=== PATIENT | male | born 1975 | race Caucasian/White ===

== ENCOUNTER 2024-09-06 14:12 | Emergency (ER) | payer OTHER, SELFPAY ==
[2024-09-06] VITALS (26 sets, daily range): BP systolic 129–150; BP diastolic 63–88; PULSE 75–105; RESP 9–24; TEMP 36.7; O2SAT 90–98
[2024-09-06 15:26] LABS: Abs Immature Grans 0.05 10^3/uL (0.0-0.06); Absolute Basophil Count 0.12 10^3/uL (0.0-0.2); Absolute Eosinophil Count 0.36 10^3/uL (0.0-0.7); Absolute Monocyte Count 0.97 10^3/uL (0.1-0.8); Eosinophils % 2.9 %; HCT 41.4 % (40.0-50.0); HGB 14.3 g/dL (13.5-17.5); Immature Grans % 0.4 %; Lymphocytes % 20.1 %; MCH 33.7 pg (27.0-33.0); MCHC 34.5 % (32.0-36.0); MCV 98 fL (80-95); MPV 8.9 fL (8.0-11.0); Monocytes % 7.8 %; Neutrophils % 67.8 %; Platelet Count 391 10^3/uL (130-400); RBC 4.24 10^6/uL (4.36-5.78); RDW 13.3 % (11.8-14.1); RDW-SD 47.7 fL; WBC 12.45 10^3/uL (4.4-10.8)
[2024-09-06 15:27] LABS: Absolute Neutrophil Count 8.44 10^3/uL (1.2-6.7)
[2024-09-06] MEDS: chlordiazePOXIDE 25 MG CAP 100 MG PO (15:31)
--- NOTE | 2024-09-06 15:31 | ED.GENADUL_ITS ---
Discharge Plan Disposition Patient Disposition: Home Condition: Stable Discharge Details Clinical Impression: Alcohol withdrawal Primary Care Provider: Unknown,Unknown ED Provider: Aaron Rabago Home Meds and New Rx's Prescriptions: New thiamine HCl (vitamin B1) 100 mg capsule 100 mg PO DAILY Qty: 7 0RF ondansetron 4 mg tablet,disintegrating 4 mg PO Q6H PRN (Reason: nausea and vomiting) Qty: 30 0RF chlordiazepoxide HCl 25 mg capsule 25 mg PO TID PRNQty: 25 0RF Rx Instructions: Take 2 tabs TID x2 days, then 2 tabs BID x2 days, then 1 tab BID x2 days, then 1 tab for 1 day No Action trazodone 50 mg tablet 50 mg PO QHS sertraline 50 mg tablet 50 mg PO DAILY dextroamphetamine-amphetamine [Adderall XR] 20 mg capsule,extended release 24hr 20 mg PO DAILY naltrexone 50 mg tablet 50 mg PO DAILY Discharge Instructions Instructions: Alcohol withdrawal Additional Instructions: Prescriptions to help with withdrawal symptoms sent to the pharmacy. At this time you do not have any symptoms consistent with severe alcohol withdrawal your vital signs are stable Take Zofran as needed for nausea and vomiting Make sure you are drinking lots of water and eating meals Take the thiamine daily as prescribed For the Librium taper take as follows 50 mg 3 times daily for 2 days 50 mg twice daily for 2 days 25 mg twice daily for 2 days 25 mg for 1 day return to the emergency department if you have any concerns for severe withdrawal You have agreed to sobriety with this medication prescription. If you take the Librium with alcohol it can result in your . Do not drink while you are taking this medication. Please follow-up closely with community resources and the recovery center. HPI General Date/Time Provider Initiated Documentation: 09/06/24 14:31 . Limitations to Documentation: no limitations . Information obtained by: patient . HPI Narrative: 49-year-old gentleman with past medical history of alcohol abuse disorder presents for evaluation requesting assistance with alcohol detox. He reports that he has been a daily drinker. He does report history of alcohol withdrawal seizures, last in June. He has been going to the outpatient program [place] which did recommend to him that he present to the emergency department for assistance with withdrawal. He states that his last drink was today on the way here he drank a beer. He does not feel like he is currently having any withdrawal symptoms. He states that he has recently been started on naltrexone and has been taking this 50 mg daily for a few days now. He denies any suicidality or homicidality. Related Data Home Medications ?Medication ?Instructions ?Recorded ?Confirmed chlordiazepoxide HCl 25 mg capsule 25 mg PO TID PRN #25 caps 09/06/24 dextroamphetamine-amphetamine ER 20 mg PO DAILY 09/06/24 09/06/24 20 mg 24hr capsule,extend release (Adderall XR) naltrexone 50 mg tablet 50 mg PO DAILY 09/06/24 09/06/24 ondansetron 4 mg disintegrating 4 mg PO Q6H PRN nausea and 09/06/24 tablet vomiting #30 tabs sertraline 50 mg tablet 50 mg PO DAILY 09/06/24 09/06/24 thiamine HCl (vitamin B1) 100 mg 100 mg PO DAILY #7 caps 09/06/24 capsule trazodone 50 mg tablet 50 mg PO QHS 09/06/24 09/06/24 Previous Rx's ?Medication ?Instructions ?Recorded chlordiazepoxide HCl 25 mg capsule 25 mg PO TID PRN #25 caps 09/06/24 ondansetron 4 mg disintegrating 4 mg PO Q6H PRN nausea and 09/06/24 tablet vomiting #30 tabs thiamine HCl (vitamin B1) 100 mg 100 mg PO DAILY #7 caps 09/06/24 capsule Allergies Allergy/AdvReac Type Severity Reaction Status Date / Time No Known Allergies Allergy Unverified 09/06/24 14:31 General Stated Complaint: ETOHWithdr TEREZA: 2 Exam Narrative Exam Narrative: Review of Systems: All systems reviewed & are unremarkable except as noted in HPI and below Well-developed, no acute distress NCAT PERRL, normal conjunctiva no nystagmus Mild tachycardia Unlabored respiratory effort clear bilaterally Nondistended abdomen soft nontender no focal neurologic deficits mild agitation at rest, no diaphoresis or tremor, mild elevation in heart rate and blood pressure. Course Vital Signs Vital signs: Vital Signs Temperature 36.7 C 09/06/24 14:26 Pulse 105 H 09/06/24 14:26 Respiratory Rate 14 09/06/24 14:26 Blood Pressure 138/88 09/06/24 14:26 Pulse Oximetry 96 09/06/24 14:26 Temperature 36.7 C 09/06/24 14:26 Temperature Source Oral 09/06/24 14:26 Pulse 105 H 09/06/24 14:26 Respiratory Rate 14 09/06/24 14:26 Respiratory Pattern Normal 09/06/24 15:17 Blood Pressure 138/88 09/06/24 14:26 Blood Pressure Position Sitting 09/06/24 14:26 Pulse Oximetry 96 09/06/24 14:26 Oxygen Delivery Method Room Air 09/06/24 14:26 Oxygen Flow Rate 0 09/06/24 14:26 Pain Level 0 09/06/24 14:26 Lab/Test Results Lab/Test Results: Laboratory Tests Range/Units 09/06/24 15:20 WBC (4.4-10.8) 10^3/uL 12.45 H RBC (4.36-5.78) 10^6/uL 4.24 L Hgb (13.5-17.5) g/dL 14.3 Hct (40.0-50.0) % 41.4 MCV (80-95) fL 98 H MCH (27.0-33.0) pg 33.7 H MCHC (32.0-36.0) % 34.5 RDW (11.8-14.1) % 13.3 Plt Count (130-400) 10^3/uL 391 MPV (8.0-11.0) fL 8.9 Immature Gran % % 0.4 Neutrophils % % 67.8 Lymphocytes % % 20.1 Monocytes % % 7.8 Eosinophils % % 2.9 Basophils % % 1.0 Nucleated RBC % (0.0-0.3) % 0.0 Absolute Neutrophils (1.2-6.7) 10^3/uL 8.44 H Absolute Lymphocytes (1.2-3.4) 10^3/uL 2.50 Absolute Monocytes (0.1-0.8) 10^3/uL 0.97 H Absolute Eosinophils (0.0-0.7) 10^3/uL 0.36 Absolute Basophils (0.0-0.2) 10^3/uL 0.12 Medical Decision Making Emergent evaluation of alcohol use disorder. Patient currently on naltrexone and looking to have assistance with complete abstinence from alcohol. He is not demonstrating any current signs of severe alcohol withdrawal but did have a seizure in previous withdrawal episodes. Patient monitored closely in the emergency department, no acute withdrawal symptoms observed. Lab work reviewed. Alcohol level noted to be 69. Glucose slightly low as well. Patient was fed and tolerated that well. Lab work without any other significant derangements. His vital signs have been normal. And at this time I do not feel he requires inpatient admission for monitoring of severe alcohol withdrawal. Had long discussion with the patient. He was also evaluated by assistant baseball coach and provided resources. He does not live alone, and his girlfriend is also committed to sobriety. The patient will be prescribed a Librium taper. He understands that he cannot consume alcohol while taking this Librium. He is also understands to continue his naltrexone. He has provided services in place on the report and close follow-up. He understands to return to the hospital as needed. Quality:[facility] Health Related Social Needs: No Data to Display [facility] All Active Problems (Updated 09/06/24 @ 17:39 by Aaron Rabago MD) Alcohol withdrawal (Acute) Social History Smoking/Tobacco Use Status: Current every day Tobacco Type: cigarettes Smoking risk assessment performed?: Yes Alcohol Intake: current Alcohol Intake frequency: 0-2 drinks per day Alcohol type: beer and hard liquor Drug use: Never Substance use type: does not use Housing: house Do you feel safe at home: Yes Do you feel safe in your relationship?: Yes PAWSS Have you Been Recently Intoxicated or Drunk Within the Last 30 days?: Yes Have you Ever Experienced Previous Episodes of Alcohol Withdrawal?: Yes Have you ever Experienced Withdrawal Seizures?: Yes Have you ever Experienced Delirium Tremens(DT)s?: Yes Have you ever undergone Alcohol Rehabilitation Treatment ([facility].e, [facility])?: Yes Have you ever Experienced Blackouts?: Yes Have you ever Combined Alcohol with other Downers within the last 90 days?: No Have you ever Combined Alcohol with any other Substance of Abuse during the last 90 days?: No Positive Blood Alcohol level on Presentation? [PCS.BAL]: Yes Evidence of Increased Autonomic Activity (i.e. HR>120, tremor, sweating, agitation, nausea)?: Yes Result: 8
[2024-09-06 15:46] LABS: ALT 40 U/L (16-63); AST 36 U/L (15-37); Albumin 4.1 g/dL (3.4-5.0); Alkaline Phosphatase 109 U/L (46-116); BUN 8 mg/dL (7-18); Bilirubin, Total 0.4 mg/dL (0.2-1.0); CREATININE 0.8 mg/dL (0.70-1.30); Calcium 9.2 mg/dL (8.5-10.1); Chloride 103 mmol/L (98-107); ETHANOL BLOOD 69.7 mg/dL (<10); Estimated GFR 107.82 (mL/min/1.73m2); Glucose 67 mg/dL (74-106); Lipase 22 U/L (<78); Potassium 3.9 mmol/L (3.5-5.1); Sodium 139 mmol/L (136-145); Total Protein 8.2 g/dL (6.4-8.2)
== END 2024-09-06 18:09 | disposition home or self-care (01) ==
PROVIDERS: Emergency Provider Emergency Medicine
DX: F10.239 Alcohol dependence with withdrawal, unspecified (principal); F10.220 Alcohol dependence with intoxication, uncomplicated; F17.210 Nicotine dependence, cigarettes, uncomplicated
CPT/HCPCS: 36415; 80053; 82962; 83690; 99283; 80320; 83735; 85025